=== PATIENT | female | born 1990 ===

== ENCOUNTER 2025-04-18 14:23 | Emergency (ER) | payer MEDICAID, OTHER ==
[~2025-04-18] VITALS: Ht 167.6 cm; Wt 77.1 kg
--- NOTE | 2025-04-18 14:41 | ED.PDOC ---
Musculoskeletal HPI Comments A 34 year-old female, with a SHX of R Knee Surgery, presents to the ED via EMS with a chief complaint of Left Knee Pain minutes ago. Patient reports her dog jumped on her when the Left Knee got dislocated. Per EMS, when patient was being moved to the car, the knee popped into place on its own. Patient has no further complaints at this time and otherwise denies further associated symptoms of LOC, dizziness, migraine, chest pain, N/V/D, fever, or chills. Chief Complaint: Lower Extremity Time Seen by MD: 14:32 Reviewed Notes: Medications, Allergies Information Source: Patient, Emergency Med Personnel Mode of Arrival: EMS Extremity Location: Knee (Left ) Timing: Hours Severity: Moderate Bear Weight: No Pain: Moderate Circumstances: Playing Onset of Symptoms: During Exercise Symptoms: Pain Associated signs and symptoms: Knee pain (Left ) Past Medical History PAST MEDICAL HISTORY: Denies Surgical History: Tonsillectomy Surgical History (Other): R Knee Surgery ASSOCIATE ATTORNEY History: No Pertinent ASSOCIATE ATTORNEY History Family History Family History: Reviewed,noncontributory to illness, No family hx of Cancer, No family hx of DM, No family hx of Heart naomi, No family hx of HTN, No family hx ofKidney naomi, No family hx of Liver naomi, No family hx of Lung naomi, No family hx of Stroke Social History Smoker: Non-Smoker Alcohol: Denies ETOH Use Drugs: Denies Drug Use Lives In: Home Constitutional: denies: chills, diaphoresis, fatigue, fever, malaise, sweats, weakness, others EENTM: denies: blurred vision, double vision, ear bleeding, ear discharge, ear drainage, ear pain, ear ringing, eye pain, eye redness, hearing loss, mouth pain, mouth swelling, nasal discharge, nose bleeding, nose congestion, nose pain, photophobia, tearing, throat pain, throat swelling, voice changes, others Respiratory: denies: cough, hemoptysis, orthopnea, SOB at rest, shortness of breath, SOB with excertion, stridor, wheezing, others Cardiovascular: denies: chest pain, dizzy spells, diaphoresis, Dyspnea on exertion, edema, irregular heart beat, left arm pain, lightheadedness, palpitations, PND, syncope, others Gastrointestinal: denies: abdomen distended, abdominal pain, blood streaked bowels, constipated, diarrhea, dysphagia, difficulty swallowing, hematemesis, melena, nausea, poor appetite, poor fluid intake, rectal bleeding, rectal pain, vomiting, others Genitourinary: denies: abnormal vagina bleeding, burning, dyspareunia, dysuria, flank pain, frequency, hematuria, incontinence, pain, , vagina discharge, urgency, others Neurological: denies: dizziness, fainting, headache, left sided numbness, left sided weakness, numbness, paresthesia, pre-existing deficit, right sided numbness, right sided weakness, seizure, speech problems, tingling, tremors, weakness, others Musculoskeletal: reports: joint pain, joint swelling, others (Left Knee Pain ); denies: back pain, gout, muscle pain, muscle stiffness, neck pain Integumetry: denies: bruises, change in color, change in hair/nails, dryness, laceration, lesions, lumps, rash, wounds, others Allergic/Immunocompromised: denies: Difficulty Healing, Frequent Infections, Hives, Itching, others Hematologic/Lymphatic: denies: anemia, blood clots, easy bleeding, easy bruising, swollen glands, others Endocrine: denies: excessive hunger, excessive sweating, excessive thirst, excessive urination, flushing, intolerance to cold, intolerance to heat, unexplained weight gain, unexplained weight loss, others Psychiatric: denies: anxiety, bipolar disorder, depression, hopeless, panic disorder, schizophrenia, sleepless, suicidal, others All Other Systems: Reviewed and Negative Physical Exam General Appearance: Moderate Distress HEENT: Normal ENT Inspection, Pharynx Normal, TMs Normal Neck: Full Range of Motion, Non-Tender, Normal, Normal Inspection Respiratory: Chest Non-Tender, Lungs Clear, No Accessory Muscle Use, No Respiratory Distress, Normal Breath Sounds Cardiovascular: No Edema, No JVD, No Murmur, No Gallop, Normal Peripheral Pulses, Regular Rate/Rhythm Breast Exam: Deferred Gastrointestinal: No Organomegaly, Non Tender, No Pulsatile Mass, Normal Bowel Sounds, Soft Genitalia: Deferred Pelvic: Deferred Rectal: Deferred Extremities: No calf tenderness, Normal capillary refill, No pedal edema Musculoskeletal : Location: Left Extremity Location: Knee Apperance: Limited ROM, Tenderness: Moderate 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 Was a procedure done?: No Differential Diagnosis EXT Differential Diagnosis: Fracture, Dislocation X-Ray, Labs, Meds, VS Left knee x-ray shows: FINDINGS/IMPRESSION: There is no evidence of acute fracture or dislocation. The visualized joint space is well maintained. The alignment is anatomical. There is no radiopaque foreign body. The patient was placed in a knee immobilizer and crutches The patient will return to the emergency department's condition worsens The patient was given a prescription of [place] Images Reviewed?: Images reviewed and evaluated by me Time of 1ST Reevaluation: 15:24 Reevaluation 1ST: Unchanged Patient Education/Counseling: Diagnosis, Treatment, Prognosis, Need For Follow Up Family Education/Counseling: No Family Present Departure 1 Departure Time of Disposition: 15:25 Impression: Primary Impression: Dislocation of left patella Qualified Codes: S83.005A - Unspecified dislocation of left patella, initial encounter Disposition: HOME / SELF CARE / HOMELESS Condition: Fair Discharged With: Self, Relative Critical Care Note Critical Care Time?: No Stability Stability form required: No Heart Score Heart Score: Heart Score Response (Comments) Value History N/A 0 EKG N/A 0 Age N/A 0 Risk Factors N/A 0 Troponin N/A 0 Total 0 I personally scribed for ZIA ALTAMIRANO MD ([email or web address]) on 04/18/25 at 14:41. Electronically submitted by Doris GudinoBE[facility]). ZIA ALTAMIRANO MD Apr 18, 2025 14:41
--- NOTE | 2025-04-18 15:16 | DVH ---
EXAM: XY L KNEE 3V XRAY CLINICAL INDICATION: fall TECHNIQUE: XY L KNEE 3V XRAY Comparison: None FINDINGS/IMPRESSION: There is no evidence of acute fracture or dislocation. The visualized joint space is well maintained. The alignment is anatomical. There is no radiopaque foreign body.
[2025-04-18] MEDS ORDERED: HYDR-4902 PO (15:26)
[2025-04-18] MEDS ORDERED: HYDROcodone-ACET 10/325MG TAB PO ONE (15:30)
[2025-04-18] MEDS: ACETAMINOPHEN 500 MG TAB or CAP PO ONE (17:19)
[2025-04-18 17:45] VITALS: BP 107/81; PULSE 82; RESP 14; TEMP 97.9; O2SAT 99
== END 2025-04-18 18:17 | disposition home or self-care (01) ==
LOC: EDBD 14:23 → ER 14:26
DX: S83.005A Unspecified dislocation of left patella, initial encounter (principal); Z90.89 Acquired absence of other organs; W54.1XXA Struck by dog, initial encounter; Y93.89 Activity, other specified; Y92.89 Other specified places as the place of occurrence of the external cause; Y99.8 Other external cause status
CPT/HCPCS: 29505; 73562